=== PATIENT | male | born 1985 | race Caucasian/White ===

== ENCOUNTER 2017-10-27 14:51 | Emergency (ER) | payer SELFPAY ==
[2017-10-27 15:34] VITALS: BP 147/84; PULSE 98; RESP 18; TEMP 37.1; O2SAT 100; BMI 25.0
--- NOTE | 2017-10-27 15:51 | HMH.EDUTC ---
[facility] [place]: Dental abscess Disposition: Home, Self-Care Condition on Discharge: Good Instructions: Tooth Abscess, Tooth Decay, Tooth Decay Prevention (Alternative Therapy), DI for Tooth Decay Additional Instructions: Take medication as prescribed Follow up with Dentist as advised for treatment of broken teeth and dental pain Return if needed Call dentist tomorrow to make appointment and advise them that you was started on Antibiotics today Prescriptions: Ibuprofen [Ibuprofen 600mg Tab] 600 mg PO Q6H PRN #20 tab PRN Reason: Moderate Pain Penicillin V Potassium 500 mg PO Q6H #28 tab Referrals: Steven Valdez [Referring] - Time of Disposition: 16:06 Medical Decision Making - Medical Records Medical records reviewed: Yes: I reviewed the patient's medical records. Vital Signs: 10/27/17 15:34 Temperature 98.8 F Temperature Source Temporal Artery Scan Pulse Rate [Right Brachial] 98 H Respiratory Rate 18 Blood Pressure [Right Arm] 147/84 Blood Pressure Mean [Right Arm] 105 Blood Pressure Source [Right Arm] Automatic Cuff Blood Pressure Position [Right Arm] Sitting 02 Sat by Pulse Oximetry 100 Oxygen Delivery Method Room Air - Marc Inquiry Pt receiving controlled substance: No Marc was queried for this patient: No [facility] [place] General Stated complaint: toothache Mode of Arrival: Ambulatory Source of Information: Patient Limitations: No Limitations Description of Symptoms (Recalled from Triage Doc. by RN): DENTAL ABSCESS X3 DAYS HEENT Symptoms (Recalled from RN notes): No Resp Symptoms (Recalled from RN notes): No Skin Symptoms (Recalled from RN notes): No MS Symptoms (Recalled from RN notes): No Functional Status (Recalled from RN notes): N/A - History of Present Illness Provider Complaint: Patient state that he has several cavitities and broken teeth State that about 3 days ago he noticed that he was getting an abcess State that last night he took a needle and popped the blister that was on his gum area State that now he is having pain in the tooth so he came in to get on medication - Related Data Previous Rx's Medication Instructions Recorded Ibuprofen [Ibuprofen 600mg Tab] 600 mg PO Q6H PRN #20 tab 10/27/17 Penicillin V Potassium 500 mg PO Q6H #28 tab 10/27/17 - Worker's Comp Is this a Worker's Comp case?: No [facility] History I have reviewed the patient's past medical history: Yes Medical History: Denies:: Diabetes Mellitus Type 1, Diabetes Mellitus Type 2 - *Social History Smoking Status: Current every day smoker Tobacco Type: cigarettes Alcohol Intake: current Alcohol Intake Frequency:: a few times a month - Psychiatric History Expresses thoughts of harming self/others: None Suicide Plan Description: No Plan ROS Obtained: Yes All systems reviewed & no additional complaints - ENT Ears, Nose, Mouth, and Throat: Reports other (dental pain/abcess) Physical Exam - General General appearance: alert, in no apparent distress - Expanded ENT Exam Open Mouth Image: 1 - broken tooth Teeth exam: Present: dental caries, fractured tooth #, dental tenderness # Comment: Multiple broken teeth and dental caries, swollen area on right upper gum area with blister like lesion like that seen with abcess - Respiratory Respiratory exam: Present: normal lung sounds bilaterally. Absent: respiratory distress - Cardiovascular Cardiovascular exam: Present: regular rate, normal rhythm. Absent: JVD - Neurological Exam Neurological exam: Present: alert, oriented X3
--- NOTE | 2017-10-27 15:58 | ED_ITS ---
[facility] [place] Disposition Clinical Impression: Dental abscess Disposition: Home, Self-Care Condition on Discharge: Good Instructions: Tooth Abscess, Tooth Decay, Tooth Decay Prevention (Alternative Therapy), DI for Tooth Decay Additional Instructions: Take medication as prescribed Follow up with Dentist as advised for treatment of broken teeth and dental pain Return if needed Call dentist tomorrow to make appointment and advise them that you was started on Antibiotics today Prescriptions: Ibuprofen [Ibuprofen 600mg Tab] 600 mg PO Q6H PRN #20 tab PRN Reason: Moderate Pain Penicillin V Potassium 500 mg PO Q6H #28 tab Referrals: tSeven Valdez [Referring] - Time of Disposition: 16:06 Medical Decision Making - Medical Records Medical records reviewed: Yes: I reviewed the patient's medical records. Vital Signs: 10/27/17 15:34 Temperature 98.8 F Temperature Source Temporal Artery Scan Pulse Rate [Right Brachial] 98 H Respiratory Rate 18 Blood Pressure [Right Arm] 147/84 Blood Pressure Mean [Right Arm] 105 Blood Pressure Source [Right Arm] Automatic Cuff Blood Pressure Position [Right Arm] Sitting 02 Sat by Pulse Oximetry 100 Oxygen Delivery Method Room Air - Marc Inquiry Pt receiving controlled substance: No Marc was queried for this patient: No [facility] [place] HPI - General Stated complaint: toothache Mode of Arrival: Ambulatory Source of Information: Patient Limitations: No Limitations Description of Symptoms (Recalled from Triage Doc. by RN): DENTAL ABSCESS X3 DAYS HEENT Symptoms (Recalled from RN notes): No Resp Symptoms (Recalled from RN notes): No Skin Symptoms (Recalled from RN notes): No MS Symptoms (Recalled from RN notes): No Functional Status (Recalled from RN notes): N/A - History of Present Illness Provider Complaint: Patient state that he has several cavitities and broken teeth State that about 3 days ago he noticed that he was getting an abcess State that last night he took a needle and popped the blister that was on his gum area State that now he is having pain in the tooth so he came in to get on medication - Related Data Previous Rx's Medication Instructions Recorded Ibuprofen [Ibuprofen 600mg Tab] 600 mg PO Q6H PRN #20 tab 10/27/17 Penicillin V Potassium 500 mg PO Q6H #28 tab 10/27/17 - Worker's Comp Is this a Worker's Comp case?: No [facility] History I have reviewed the patient's past medical history: Yes Medical History: Denies:: Diabetes Mellitus Type 1, Diabetes Mellitus Type 2 - *Social History Smoking Status: Current every day smoker Tobacco Type: cigarettes Alcohol Intake: current Alcohol Intake Frequency:: a few times a month - Psychiatric History Expresses thoughts of harming self/others: None Suicide Plan Description: No Plan ROS Obtained: Yes All systems reviewed & no additional complaints - ENT Ears, Nose, Mouth, and Throat: Reports other (dental pain/abcess) Physical Exam - General General appearance: alert, in no apparent distress - Expanded ENT Exam Open Mouth Image: 1 - broken tooth Teeth exam: Present: dental caries, fractured tooth #, dental tenderness # Comment: Multiple broken teeth and dental caries, swollen area on right upper gum area with blister like lesion like that seen wi
[2017-10-27 16:10] VITALS: BP 147/84; PULSE 98; RESP 18; TEMP 37.1; O2SAT 100
== END 2017-10-27 16:11 | disposition home or self-care (01) ==
PROVIDERS: Emergency Provider Nurse Practitioner
DX: K04.7 Periapical abscess without sinus (principal); K02.9 Dental caries, unspecified; Z88.0 Allergy status to penicillin; F17.210 Nicotine dependence, cigarettes, uncomplicated
CPT/HCPCS: 99202